=== PATIENT | female | born 1960 | race Caucasian/White ===

== ENCOUNTER 2018-08-10 06:14 | Day surgery (SDC) | payer OTHER ==
[~2018-08-10] VITALS: Ht 154.9 cm; Wt 78.6 kg
[2018-08-10 07:29] VITALS: Ht 154.9 cm; Wt 78.6 kg
[2018-08-10] MEDS ORDERED: METFORMIN (07:36)
[2018-08-10] MEDS ORDERED: HYDROCHLOROTHIAZIDE (07:36)
[2018-08-10] MEDS ORDERED: BENAZEPRIL (07:36)
[2018-08-10] MEDS ORDERED: PRAVASTATIN (07:36)
[2018-08-10 07:51] VITALS: BP 125/65; PULSE 74; RESP 26
[2018-08-10] MEDS ORDERED: MIDAZOLAM 1 MG/ML 2 ML INJ ONE (08:46)
[2018-08-10] MEDS ORDERED: FENTAnyl 50 MCG/ML VIAL ONE (08:46)
[2018-08-10 09:13] VITALS: BP 125/74; RESP 20
== END 2018-08-10 10:51 | disposition home or self-care (01) ==
LOC: GIL 06:14
PROVIDERS: ATTEND Internal Medicine Gastroenterology
DX: Z12.11 Encounter for screening for malignant neoplasm of colon (principal); K64.8 Other hemorrhoids; I10 Essential (primary) hypertension; E11.9 Type 2 diabetes mellitus without complications
CPT/HCPCS: 45378; 82962; J2250; J3010; Z7610